=== PATIENT | male | born 1980 | race Caucasian/White ===

== ENCOUNTER 2016-06-24 19:05 | Emergency (ER) | payer BC ==
[2016-06-24 19:26] VITALS: BP 140/90
[2016-06-24] MEDS ORDERED: Cephalexin 500 MG Cap PO ONE (19:54)
[2016-06-24] MEDS ORDERED: Diphtheria,Pertussis(Acell),Tetanus Vaccine 0.5 ML SDV IM ONE (19:55)
--- NOTE | 2016-06-25 01:36 | ER ---
DATE SEEN: 06/24/2016 TIME SEEN: 1930 hours. REASON FOR VISIT: Laceration. HISTORY OF PRESENT ILLNESS: This is a 35-year-old male who had a laceration while working on his car on the right hand. He is not sure of his tetanus immunization. He came in with a laceration measuring about 4 cm on the palmar thenar eminence. PHYSICAL EXAMINATION: Afebrile. Blood pressure and temperature normal. Right hand revealed a v-shaped 4 cm size deep laceration of the thenar eminence. IMPRESSION: Laceration, simple. PLAN: I used two stitches [address] eight sutures of 4-0 Ethilon after local anesthesia. Tetanus was addressed and the patient was given cephalexin for antibiotic prophylaxis. Follow up in 1 week to remove stitches. /[id number] [place]
== END 2016-06-24 20:15 | disposition home or self-care (01) ==
LOC: FB.ED 19:05
DX: S61.411A Laceration without foreign body of right hand, initial encounter (principal); X58.XXXA Exposure to other specified factors, initial encounter
CPT/HCPCS: 12002; 90471; 90715; 99282; A4217; A9270-GY